=== PATIENT | male | born 2000 | race Caucasian/White ===

== ENCOUNTER 2020-04-08 22:44 | Emergency (ER) | payer OTHER ==
[~2020-04-08] VITALS: Ht 175.3 cm; Wt 100.0 kg
[2020-04-09 00:59] VITALS: BP 146/92
== END 2020-04-09 01:21 | disposition home or self-care (01) ==
LOC: EMS 22:44
DX: S62.327D Displaced fracture of shaft of fifth metacarpal bone, left hand, subsequent encounter for fracture with routine healing (principal); X58.XXXD Exposure to other specified factors, subsequent encounter